=== PATIENT | female | born 1980 | race Two or more races ===

== ENCOUNTER 2018-02-02 14:30 | Emergency (ER) | payer BC, MEDICAID ==
[~2018-02-02] VITALS: Ht 162.6 cm; Wt 80.0 kg
[2018-02-02] MEDS ORDERED: TETANUS, DIPHTHERIA, PERTUSSIS VAC/PF 0.5ML (>7YR OLD) IM ONE (18:30)
[2018-02-02 19:32] VITALS: BP 115/76
== END 2018-02-02 19:33 | disposition home or self-care (01) ==
LOC: ER 15:22
DX: T20.26XA Burn of second degree of forehead and cheek, initial encounter (principal); T20.23XA Burn of second degree of chin, initial encounter; S00.81XA Abrasion of other part of head, initial encounter; T31.0 Burns involving less than 10% of body surface; F15.10 Other stimulant abuse, uncomplicated; F17.200 Nicotine dependence, unspecified, uncomplicated; X08.8XXA Exposure to other specified smoke, fire and flames, initial encounter; Y93.89 Activity, other specified; Y92.89 Other specified places as the place of occurrence of the external cause; Y99.8 Other external cause status
CPT/HCPCS: 90471; 90715; 99283; Z7610